=== PATIENT | female | born 1995 | race African-American/Black ===

== ENCOUNTER 2022-08-14 05:35 | Emergency (ER) | payer OTHER ==
[2022-08-14 06:19] VITALS: BP 135/90; PULSE 93; RESP 20; BMI 26.6
[2022-08-14] MEDS ORDERED: FAMOTIDINE 20 MG/50 ML IVPB 20 MG/50 ML MG IVPB ONE ×2 (07:52→08:13)
[2022-08-14] MEDS ORDERED: LACTATED RINGERS SOLUTION 1000 ML INFUS.BAG IV ONE (07:52)
[2022-08-14] MEDS ORDERED: ACETAMINOPHEN 1000 MG/100 ML BAG IVPB ONE (07:52)
[2022-08-14] MEDS ORDERED: LIDOCAINE 5% TOPICAL PATCH TP ONE (07:52)
[2022-08-14] MEDS ORDERED: MAG HYDROX/AL HYDROX/SIMETH -MYLANTA- ORAL SUSPENSION PO ONE (07:52)
[2022-08-14] MEDS ORDERED: ACETAMINOPHEN INJECTION 100 ML IVPB ONE (08:13)
[2022-08-14] MEDS ORDERED: MAG HYDROX/AL HYDROX/SIMETH 30 ML UNIT-DOSE CUP ONE (08:13)
[2022-08-14] MEDS ORDERED: LIDOCAINE 5% TOPICAL PATCH ONE (08:34)
[2022-08-14 08:43] LABS: HCG,QUALITATIVE URINE Negative; PH,URINE 7.5 (5.0-8.0); URINE APPEARANCE CLEAR; URINE BILIRUBIN NEGATIVE (NEGATIVE); URINE COLOR YELLOW; URINE GLUCOSE (UA) NEGATIVE (NEGATIVE); URINE KETONE NEGATIVE (NEGATIVE); URINE LEUK ESTERASE NEGATIVE (NEGATIVE); URINE NITRITE NEGATIVE (NEGATIVE); URINE PROTEIN NEGATIVE (NEGATIVE); URINE UROBILINOGEN 0.2 mg/dL (0.2-1.0)
[2022-08-14 09:24] LABS: BASO % 0.2 % (0-2.0); EOS % 0.2 % (0-4.5); HEMATOCRIT 42.8 % (32.4-45.2); HEMOGLOBIN 14.3 GM/dL (10.7-15.3); LYMPH % 13.3 % (8-40); MCH 28.2 pg (25.7-33.7); MCHC 33.3 g/dl (32.0-36.0); MEAN CELL VOLUME 84.7 fl (80-96); MEAN PLT VOLUME 8.3 fl (7.5-11.1); MONO % 7.2 % (3.8-10.2); NEUT % 79.1 % (42.8-82.8); PLATELET COUNT 261 10^3/uL (134-434); RBC 5.05 M/mm3 (3.60-5.2); RDW 13.7 % (11.6-15.6); WHITE BLOOD COUNT 6.7 K/mm3 (4.0-10.0)
[2022-08-14 11:10] LABS: CALCIUM 9.6 mg/dL (8.5-10.1)
[2022-08-14 11:11] LABS: ALBUMIN 4.2 g/dl (3.4-5.0); BLOOD UREA NITROGEN 6.2 mg/dL (7-18); MAGNESIUM 2.2 mg/dL (1.8-2.4)
[2022-08-14 11:14] LABS: CREATININE 0.7 mg/dL (0.55-1.3)
[2022-08-14 11:15] LABS: TOT PROT 7.7 g/dl (6.4-8.2)
[2022-08-14] MEDS ORDERED: LIDOCAINE PATCH REMOVAL MC SCH (22:00)
== END 2022-08-14 11:48 | disposition home or self-care (01) ==
LOC: JER 05:35
PROC: 3E0333Z Introduction of Anti-inflammatory into Peripheral Vein, Percutaneous Approach (ICD-10-PCS; principal; 2022-08-14)
PROC: 3E033GC Introduction of Other Therapeutic Substance into Peripheral Vein, Percutaneous Approach (ICD-10-PCS; 2022-08-14)
DX: R10.9 Unspecified abdominal pain (principal); M54.50 Low back pain, unspecified
CPT/HCPCS: 0241U-QW; 36415; 80053; 81003; 83690; 83735; 84443; 84703; 85025; 87086; 99284-25

== ENCOUNTER 2022-08-15 03:39 | Emergency (ER) | payer OTHER ==
[2022-08-15 04:33] VITALS: BP 120/83; PULSE 64; RESP 18; TEMP 98; BMI 25.7
[2022-08-15] MEDS ORDERED: LIDOCAINE 5% TOPICAL PATCH TP ONE (04:41)
[2022-08-15] MEDS ORDERED: LIDOCAINE 5% TOPICAL PATCH ONE (05:10)
[2022-08-15] MEDS ORDERED: ACETAMINOPHEN 500 MG TABLET (FP) PO ONE (06:18)
[2022-08-15] MEDS ORDERED: ACETAMINOPHEN 325 MG TABLET (FP) ONE (06:34)
[2022-08-15] MEDS ORDERED: LIDOCAINE PATCH REMOVAL MC SCH (22:00)
== END 2022-08-15 06:59 | disposition home or self-care (01) ==
LOC: JER 03:39
DX: M62.830 Muscle spasm of back (principal)
CPT/HCPCS: 72070-TC-FY; 99283-25

== ENCOUNTER 2022-08-16 03:25 | Emergency (ER) | payer OTHER ==
[2022-08-16 03:42] VITALS: RESP 16; TEMP 98.4; BMI 25.7
[2022-08-16] MEDS ORDERED: ONDANSETRON *ODT* 4 MG TABLET SL ONE (07:40)
[2022-08-16] MEDS ORDERED: FAMOTIDINE 10 MG TABLET PO ONE (07:40)
[2022-08-16] MEDS ORDERED: ONDANSETRON *ODT* 4 MG TABLET ONE (07:46)
[2022-08-16] MEDS ORDERED: FAMOTIDINE 20 MG TABLET ONE (07:46)
[2022-08-16 09:51] VITALS: BP 108/74; PULSE 71
== END 2022-08-16 09:56 | disposition home or self-care (01) ==
LOC: JER 03:25
DX: R10.9 Unspecified abdominal pain (principal)
CPT/HCPCS: 74176-TC; 84703; 99284-25; Q0162

== ENCOUNTER 2022-09-01 08:53 | Emergency (ER) | payer OTHER ==
[2022-09-01 09:09] VITALS: BMI 25.7
[2022-09-01] MEDS ORDERED: DICYCLOMINE HCL 20 MG/2 ML AMPUL IM ONE (09:38)
[2022-09-01 11:28] LABS: BASO % 0.2 % (0-2.0); EOS % 1.1 % (0-4.5); HEMATOCRIT 41.8 % (32.4-45.2); HEMOGLOBIN 13.8 GM/dL (10.7-15.3); MCH 27.8 pg (25.7-33.7); MEAN CELL VOLUME 84.3 fl (80-96); MEAN PLT VOLUME 8.5 fl (7.5-11.1); MONO % 9.3 % (3.8-10.2); NEUT % 69.4 % (42.8-82.8); PH,URINE 7.5 (5.0-8.0); PLATELET COUNT 222 10^3/uL (134-434); RBC 4.96 M/mm3 (3.60-5.2); RDW 13.8 % (11.6-15.6); URINE APPEARANCE CLEAR; URINE BILIRUBIN NEGATIVE (NEGATIVE); URINE COLOR YELLOW; URINE GLUCOSE (UA) NEGATIVE (NEGATIVE); URINE KETONE NEGATIVE (NEGATIVE); URINE LEUK ESTERASE NEGATIVE (NEGATIVE); URINE NITRITE NEGATIVE (NEGATIVE); URINE PROTEIN NEGATIVE (NEGATIVE); WHITE BLOOD COUNT 7.3 K/mm3 (4.0-10.0)
[2022-09-01 11:40] LABS: HCG,QUALITATIVE URINE Negative
[2022-09-01 11:51] LABS: CALCIUM 8.7 mg/dL (8.5-10.1)
[2022-09-01 11:52] LABS: ALBUMIN 3.9 g/dl (3.4-5.0); BLOOD UREA NITROGEN 5.8 mg/dL (7-18)
[2022-09-01 11:55] LABS: CREATININE 0.7 mg/dL (0.55-1.3)
[2022-09-01 11:56] LABS: BILIRUBIN,TOTAL 1.2 mg/dL (0.2-1); TOT PROT 7.3 g/dl (6.4-8.2)
[2022-09-01 13:10] VITALS: BP 125/78; PULSE 83; RESP 18; TEMP 98.8
== END 2022-09-01 13:52 | disposition home or self-care (01) ==
LOC: JER 08:53
DX: R10.9 Unspecified abdominal pain (principal)
CPT/HCPCS: 36415; 76830-TC; 80053; 81003; 83690; 84703; 85025; 87086; 99284-25

== ENCOUNTER 2022-09-05 20:05 | Emergency (ER) | payer OTHER ==
[2022-09-05 20:21] VITALS: BP 137/92; PULSE 76; RESP 18; TEMP 99.9; BMI 25.6
[2022-09-05] MEDS ORDERED: PSEUDOEPHEDRINE HCL 30 MG TABLET PO ONE (20:41)
[2022-09-05] MEDS ORDERED: PSEUDOEPHEDRINE HCL 60 MG TABLET ONE (20:57)
== END 2022-09-05 22:07 | disposition home or self-care (01) ==
LOC: JER 20:05
DX: F41.9 Anxiety disorder, unspecified (principal); R09.81 Nasal congestion
CPT/HCPCS: 99283-25

== ENCOUNTER 2022-09-20 16:30 | Emergency (ER) | payer OTHER ==
[2022-09-20 16:42] VITALS: BP 137/84; PULSE 76; RESP 18; TEMP 98.1; BMI 23.8
[2022-09-20] MEDS ORDERED: MAG HYDROX/AL HYDROX/SIMETH -MYLANTA- ORAL SUSPENSION PO ONE (17:35)
[2022-09-20] MEDS ORDERED: FAMOTIDINE 20 MG TABLET PO ONE (17:35)
[2022-09-20] MEDS ORDERED: SODIUM CHLORIDE 1,000 ML IV STA (17:35)
[2022-09-20] MEDS ORDERED: MAG HYDROX/AL HYDROX/SIMETH 30 ML UNIT-DOSE CUP ONE (17:52)
[2022-09-20] MEDS ORDERED: FAMOTIDINE 20 MG TABLET ONE (17:52)
[2022-09-20 18:09] LABS: BASO % 0.3 % (0-2.0); EOS % 0.9 % (0-4.5); HEMATOCRIT 45.1 % (32.4-45.2); HEMOGLOBIN 14.7 GM/dL (10.7-15.3); LYMPH % 22.7 % (8-40); MCH 28.2 pg (25.7-33.7); MCHC 32.7 g/dl (32.0-36.0); MEAN CELL VOLUME 86.1 fl (80-96); MEAN PLT VOLUME 8.3 fl (7.5-11.1); MONO % 8.3 % (3.8-10.2); NEUT % 67.8 % (42.8-82.8); PLATELET COUNT 243 10^3/uL (134-434); RBC 5.23 M/mm3 (3.60-5.2); RDW 14.1 % (11.6-15.6); WHITE BLOOD COUNT 8.9 K/mm3 (4.0-10.0)
[2022-09-20 18:47] LABS: CALCIUM 9.1 mg/dL (8.5-10.1)
[2022-09-20 18:48] LABS: ALBUMIN 4.2 g/dl (3.4-5.0); MAGNESIUM 1.9 mg/dL (1.8-2.4)
[2022-09-20 18:51] LABS: CREATININE 0.6 mg/dL (0.55-1.3)
[2022-09-20 18:52] LABS: BILIRUBIN,TOTAL 1.3 mg/dL (0.2-1)
[2022-09-20 18:53] LABS: TOT PROT 7.4 g/dl (6.4-8.2)
== END 2022-09-20 22:50 | disposition home or self-care (01) ==
LOC: JER 16:30
PROC: 3E0337Z Introduction of Electrolytic and Water Balance Substance into Peripheral Vein, Percutaneous Approach (ICD-10-PCS; principal; 2022-09-20)
DX: R07.1 Chest pain on breathing (principal); R07.81 Pleurodynia
CPT/HCPCS: 36415; 71046-TC-FY; 71275-TC; 80053; 83735; 84484; 84703; 85025; 85379; 93005; 93010; 99285-25; Q9967

== ENCOUNTER 2022-11-13 04:04 | Emergency (ER) | payer OTHER ==
[2022-11-13 04:23] VITALS: RESP 18; BMI 23.8
[2022-11-13] MEDS ORDERED: IBUPROFEN 600 MG TABLET (FP) PO ONE ×2 (05:02→05:07)
[2022-11-13 06:52] VITALS: BP 120/72; PULSE 77; TEMP 97.8
== END 2022-11-13 07:02 | disposition home or self-care (01) ==
LOC: JER 04:04
DX: M65.4 Radial styloid tenosynovitis [de Quervain] (principal); R20.2 Paresthesia of skin
CPT/HCPCS: 99283-25

== ENCOUNTER 2022-11-20 09:31 | Emergency (ER) | payer OTHER ==
[2022-11-20 09:39] VITALS: BP 122/68; PULSE 72; RESP 16; TEMP 98; BMI 24.7
[2022-11-20] MEDS ORDERED: FLUORESCEIN NA 1 EA STRIP ONE (09:46)
[2022-11-20] MEDS ORDERED: TETRACAINE 0.5% OPHTH SOLN 2 ML BOTTLE ONE (09:46)
[2022-11-20] MEDS ORDERED: ERYTHROMYCIN 0.5% OPHTHALMIC OINTMENT 3.5 GM TUBE ONE (09:53)
[2022-11-20] MEDS ORDERED: ERYTHROMYCIN 0.5% OPHTHALMIC OINTMENT 3.5 GM TUBE OS STA (10:09)
== END 2022-11-20 10:27 | disposition home or self-care (01) ==
LOC: JERFT 09:31
DX: S05.02XA Injury of conjunctiva and corneal abrasion without foreign body, left eye, initial encounter (principal); W22.8XXA Striking against or struck by other objects, initial encounter
CPT/HCPCS: 99283-25

== ENCOUNTER 2022-11-21 07:06 | Emergency (ER) | payer OTHER ==
[2022-11-21 07:24] VITALS: BP 117/83; PULSE 78; RESP 18; TEMP 98.5; BMI 24.7
[2022-11-21] MEDS ORDERED: TETRACAINE 0.5% OPHTH SOLN 2 ML BOTTLE ONE (08:02)
[2022-11-21] MEDS ORDERED: TETRACAINE 0.5% HCL 0.6ML DROPPER.BOTTLE OS ONE (09:15)
[2022-11-21 10:17] LABS: EPI CELLS >36 /uL (0-25.1); HYALINE CASTS 2 /uL (0-3.1); URINE APPEARANCE CLEAR; URINE BACTERIA 131 /uL (0-1359); URINE BILIRUBIN NEGATIVE (NEGATIVE); URINE COLOR YELLOW; URINE GLUCOSE (UA) NEGATIVE (NEGATIVE); URINE KETONE NEGATIVE (NEGATIVE); URINE LEUK ESTERASE TRACE (NEGATIVE); URINE NITRITE NEGATIVE (NEGATIVE); URINE PROTEIN NEGATIVE (NEGATIVE); URINE RBC 19 /uL (0-23.9); URINE WBC 10 /uL (0-25.8)
== END 2022-11-21 09:48 | disposition home or self-care (01) ==
LOC: JERFT 07:06 → JER 07:06 → JERFT 09:48
DX: H57.12 Ocular pain, left eye (principal)
CPT/HCPCS: 81003; 87086; 99282-25